=== PATIENT | male | born 1970 | race Caucasian/White ===

== ENCOUNTER 2017-09-01 14:33 | Emergency (ER) | payer OTHER ==
[~2017-09-01] VITALS: Ht 180.3 cm; Wt 102.7 kg
[2017-09-01 14:37] VITALS: BP 126/83; PULSE 93; RESP 16; TEMP 98.4; O2SAT 97
[2017-09-01] MEDS ORDERED: ASPI1CHW4 CHEW (17:00)
[2017-09-01] MEDS ORDERED: METO100T PO (17:00)
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
[2017-09-01] MEDS ORDERED: ROBA500T PO (17:29)
[2017-09-01] MEDS ORDERED: IBUP1TAB7 PO (17:29)
[2017-09-01] MEDS ORDERED: KETOROLAC TROMETHAMINE 60 MG/2 ML (IM) VIAL IM ONE (17:30)
[2017-09-01] MEDS ORDERED: ORPHENADRINE INJ 60 MG/2 ML AMP IM ONE (17:30)
== END 2017-09-01 18:11 | disposition home or self-care (01) ==
LOC: PHED 14:33 → PHEFT 18:11
DX: M54.41 Lumbago with sciatica, right side (principal); S50.01XA Contusion of right elbow, initial encounter; M54.2 Cervicalgia; R51 Headache; I48.91 Unspecified atrial fibrillation; I10 Essential (primary) hypertension; F17.200 Nicotine dependence, unspecified, uncomplicated; Z79.01 Long term (current) use of anticoagulants; V89.2XXA Person injured in unspecified motor-vehicle accident, traffic, initial encounter
CPT/HCPCS: 96372; 99284; J1885; J2360; L0150